=== PATIENT | male | born 1955 ===

== ENCOUNTER → 2017-01-13 | Outpatient (REF) | LOC: ZLAB.WCH 14:40 | DX: Z01.89 Encounter for other specified special examinations (principal) | CPT/HCPCS: G0103 ==

== ENCOUNTER → 2018-01-13 | Outpatient (REF) | LOC: ZLAB.WCH 18:06 | DX: Z12.5 Encounter for screening for malignant neoplasm of prostate (principal) | CPT/HCPCS: G0103 ==

== ENCOUNTER → 2019-01-20 | Outpatient (REF) | LOC: ZLAB.WCH 17:31 | DX: Z01.89 Encounter for other specified special examinations (principal) | CPT/HCPCS: G0103 ==